=== PATIENT | male | born 1975 | race Hispanic/Latino ===

== ENCOUNTER 2022-12-03 13:15 | Emergency (ER) | payer SELFPAY ==
[~2022-12-03] VITALS: Ht 165.1 cm; Wt 95.3 kg
[2022-12-03] MEDS ORDERED: ACETAMINOPHEN 325 MG TAB PO ONE (14:00)
[2022-12-03 15:21] VITALS: O2SAT 98
== END 2022-12-03 15:46 | disposition home or self-care (01) ==
LOC: ER 13:25
DX: S00.83XA Contusion of other part of head, initial encounter (principal); M54.2 Cervicalgia; R51.9 Headache, unspecified; Y04.0XXA Assault by unarmed brawl or fight, initial encounter; Y99.0 Civilian activity done for income or pay; F17.210 Nicotine dependence, cigarettes, uncomplicated
CPT/HCPCS: 70450; 72125; 99283